=== PATIENT | male | born 1950 | race Caucasian/White ===

== ENCOUNTER → 2016-11-29 | Day surgery (SDC) | payer OTHER ==
[2016-11-24 13:22] VITALS: Ht 167.6 cm; Wt 81.8 kg
[~2016-11-29] VITALS: Ht 167.6 cm; Wt 81.8 kg
[~2016-11-29] MED LIST: LATA0.009 OPB; LIDOCAINE HCL 2% 2 ML VIAL (20MG/ML) ONE; MIDAZOLAM HCL 1 MG/ML 2ML VIAL ONE; ONDANSETRON INJ 2 MG/ML 2 ML VIAL ONE; PROPOFOL IV EMULSION 10 MG/ML 20 ML VIAL IV ONE; TMPOPS15 OPB
--- NOTE | 2016-11-29 12:58 | Endo History and Physical ---
History & Physical Date of Service: November 29, 2016. Chief Complaint: Screening Referring Physician: Roel Yip History of Present Illness 66 yo CM who presents for screening colonoscopy. Past Surgical History Hx Cardiac Surgery: No Hx Internal Defibrillator: No Hx Pacemaker: No Hx Abdominal Surgery: No Hx of Implantable Prosthesis: No Hx Cancer Surgery: No Hx Thoracic Surgery: No Hx Orthopedic: No Hx Urinary Tract Surgery: No Family History Colon CA, Esophogeal CA Social History Smoking Status: Never Smoker Hx Substance Use: No Hx Alcohol Use: No Allergies Coded Allergies: NO KNOWN DRUG ALLERGIES (Verified Allergy, Unknown, ., 11/24/16) Current Medications Reported Home Medications Medications Dose Route/Sig Max Daily Dose Days Date Category Timolol 0.5% Oph Soln 15 Ml (Timolol Maleate) 15 Ml Soln 1 Drop OPB QAM 11/24/16 Reported Xalatan 0.005% Oph Cyndee (Latanoprost) 0.005 % Cyndee 1 Drops OPB HS 90 11/24/16 Reported Vital Signs Weight (Kilograms): 81.82 Height (Feet): 5 Height (Inches): 6 Physical Exam General Appearance: WD/WN, no apparent distress Respiratory/Chest: Auscultation: breath sounds normal Cardiovascular: Heart Auscultation: RRR Abdomen: Bowel Sounds: normal Inspection & Palpation: soft, non-distended, no tenderness, guarding & rebound Assessment and Plan Assessment: 66 yo CM who presents for screening colonoscopy. Plan: Proceed with colonoscopy.
[2016-11-29 13:04] VITALS: TEMP 36.5
--- NOTE | 2016-11-29 14:07 | GI REPORT ---
Procedure Date: 11/29/2016 1:32 PM Procedure: Colonoscopy Indications: Screening for colorectal malignant neoplasm Medicines: Monitored Anesthesia Care Complications: No immediate complications. Estimated Blood Loss: Estimated blood loss: none. Procedure: Pre-Anesthesia Assessment: - Prior to the procedure, a History and Physical was performed, and patient medications and allergies were reviewed. The patient's tolerance of previous anesthesia was also reviewed. The risks and benefits of the procedure and the sedation options and risks were discussed with the patient. All questions were answered, and informed consent was obtained. Prior Anticoagulants: The patient has taken no previous anticoagulant or antiplatelet agents. ASA Grade Assessment: I - A normal, healthy patient. After reviewing the risks and benefits, the patient was deemed in satisfactory condition to undergo the procedure. After I obtained informed consent, the scope was passed under direct vision. Throughout the procedure, the patient's blood pressure, pulse, and oxygen saturations were monitored continuously. The scope was introduced through the anus and advanced to the terminal ileum. The colonoscopy was performed without difficulty. The patient tolerated the procedure well. The quality of the bowel preparation was good. The terminal ileum, ileocecal valve, appendiceal orifice, and rectum were photographed. Findings: Multiple small-mouthed diverticula were found in the sigmoid colon. Non-bleeding internal hemorrhoids were found during retroflexion. The hemorrhoids were small. Impression: - Diverticulosis in the sigmoid colon. - Non-bleeding internal hemorrhoids. - No specimens collected. Recommendation: - Resume previous diet. - Continue present medications. - Repeat colonoscopy in 10 years for surveillance. - Return to primary care physician as previously scheduled. Naman Higgins, 11/29/2016 2:06:26 PM This report has been signed electronically. Note Initiated On: 11/29/2016 1:32 PM I attest to the content of the Intraoperative Record and orders documented therein, exceptions below
[2016-11-29 14:30] VITALS: BP 116/74; PULSE 72; O2SAT 96
--- NOTE | 2016-11-29 14:31 | Discharge Instructions ---
Endoscopy Patient Instructions Date / Procedure(s) Performed November 29, 2016. Colonoscopy Allergy Information Coded Allergies: NO KNOWN DRUG ALLERGIES (Verified Allergy, Unknown, ., 11/24/16) Discharge Date / Findings November 29, 2016. Diverticulosis Internal hemorrhoids Medication Instructions OK to resume all medications today as prescribed Reported Home Medications Medications Dose Route/Sig Max Daily Dose Days Date Category Timolol 0.5% Oph Soln 15 Ml (Timolol Maleate) 15 Ml Soln 1 Drop OPB QAM 11/24/16 Reported Xalatan 0.005% Oph Cyndee (Latanoprost) 0.005 % Cyndee 1 Drops OPB HS 90 11/24/16 Reported Provider Instructions Activity Restrictions - No exercising or heavy lifting for 24 hours. - Do not drink alcohol the day of the procedure. - Do not drive a car or operate machinery until the day after the procedure. - Do not make any important decisions or sign important papers in 24 hours after the procedure. Following Day: - Return to full activity which may include returning to work/school. Diet Start your diet with liquids and light foods (jello, soup, juice, toast). Then eat your usual diet if not nauseated. Treatment For Common After Affects For mild abdominal pain, bloating, or excessive gas: - Rest - Eat lightly - Lie on right side Follow-Up Information Follow-up with Dr. Roel Yip as scheduled Anesthesia Information What You Should Know You have had a procedure that required some medicine to reduce anxiety and discomfort. This treatment is called moderate sedation. After receiving the treatment, you may be sleepy, but you will be able to breathe on your own. The effects of the treatment may last for several hours. Follow these instructions along with Activity/Diet recommendations noted above: * Do NOT do anything where dizziness or clumsiness would be dangerous. * Rest quietly at home today, then you can be up and about tomorrow. * Have a responsible person stay with you the rest of today. * You may have had an I.V. today. If so, you may take the dressing off later today. Recommendations Call your doctor if: * Trouble breathing * Continuous vomiting for more than 24 hours * Temperature above 101 degrees * Severe abdominal pain or bloating * Pain not relieved by pain medicine ordered * There is increased drainage or redness from any incision * A large amount of rectal bleeding greater than 2-3 tablespoons. (If you had a polyp/s removed or have hemorrhoids, a small amount of blood - from the rectum is to be expected.) * You have any unanswered questions or concerns. IN THE EVENT OF A SERIOUS EMERGENCY, GO TO THE NEAREST EMERGENCY ROOM Your discharge instructions were prepared by provider Naman Higgins. Patient Instructions Signature Page Clarissa Paz Patient (or Guardian) Signature/Date: I have read and understand the instructions given to me by my caregivers. Caregiver/RN/Doctor Signature/Date: The above-named patient and/or guardian has received patient instructions on this date. + Original Patient Signature Page (only) stays with chart. Please make copy for patient.
--- NOTE | 2016-11-29 14:35 | Anesthesiology Progress Note ---
Anesthesia Post Op Note Date & Time November 29, 2016 at 14:35 Vital Signs Pain Intensity: 0 Vital Signs Past 12 Hours Date Time Temp Pulse Resp B/P Pulse Ox O2 Delivery O2 Flow Rate FiO2 11/29/16 14:30 72 18 116/74 96 Room Air 11/29/16 14:15 79 18 111/84 94 Room Air 11/29/16 14:00 77 16 104/66 94 Room Air 11/29/16 13:04 36.5 79 20 140/85 97 Room Air Notes Mental Status: alert / awake / arousable, participated in evaluation Pt Amnestic to Procedure: Yes Nausea / Vomiting: adequately controlled Pain: adequately controlled Airway Patency, RR, SpO2: stable & adequate BP & HR: stable & adequate Hydration State: stable & adequate Anesthetic Complications: no major complications apparent
== END | disposition home or self-care (01) ==
LOC: C.GI 12:24
PROVIDERS: ATTEND Internal Medicine
DX: Z12.11 Encounter for screening for malignant neoplasm of colon (principal); K64.8 Other hemorrhoids; K57.30 Diverticulosis of large intestine without perforation or abscess without bleeding; Z80.0 Family history of malignant neoplasm of digestive organs

== ENCOUNTER 2023-08-27 18:19 | Observation (INO) ==
--- NOTE | 2023-08-27 18:25 | ED Triage Note ---
Date of Service August 27, 2023 Provider in Triage Author: Ayala Jameson History of Present Illness This patient was briefly evaluated while in triage. An abbreviated physical exam was performed. This patient is a 73-year-old Male who presents to the ED for evaluation of chest pain, left side, acute onset one hour ago with some initial radiation into left arm. Pt reports sitting matthews event occurred. NORIEGA, attempted to walk and couldn't bc of shob. Pain on left side with inspiration. Physical Exam Initial orders for labs and / or imaging were placed and patient was placed in the waiting area until a bed is available. Please see further documentation for the full ED course.
--- NOTE | 2023-08-27 19:02 | XRay Report ---
XR chest 1V portable CLINICAL HISTORY: Chest pain, nonspecific COMPARISON STUDY: Chest radiograph December 28, 2014. FINDINGS: Lung volumes are normal. Minimal left basilar opacity favors atelectasis. There is no pneum othorax or pleural effusion. Cardiac size is normal. Mediastinal contours are normal. There is no sarah dence for pulmonary edema. IMPRESSION: No acute cardiopulmonary findings. ACT 112: Negative or not required by law. Electronically signed by: Hay Rae M.D. 08/27/2023 7:00 PM
[2023-08-27 19:10] LABS: Basophils # (auto) 0.02 K/uL (0.00-0.20); Basophils % (auto) 0.2 %; Eosinophils # (auto) 0.11 K/uL (0.00-0.50); Eosinophils % (auto) 1.3 %; Hematocrit (blood only) 42.4 % (42.0-52.0); Immature Granulocytes # (auto) 0.04 K/uL (0.01-0.20); Immature Granulocytes % (auto) 0.5 %; Lymphocytes # (auto) 1.82 K/uL (1.20-3.40); Lymphocytes % (auto) 21.5 %; Mean Corpuscular Hgb Conc 35.4 g/dL (32.0-36.0); Mean Corpuscular Volume 87.6 fL (80.0-100.0); Mean Platelet Volume 8.8 fL (9.4-12.4); Monocytes # (auto) 0.69 K/uL (0.11-0.59); Monocytes % (auto) 8.1 %; Neutrophils % (auto) 68.4 %; Platelet Count 246 K/uL (130-400); RDW Coefficient of Variation 13.1 % (11.5-14.5); RDW Standard Deviation 41.7 fL (36.4-46.3); Red Blood Count 4.84 M/uL (4.70-6.10); White Blood Count 8.48 K/ul (4.8-10.8)
[2023-08-27 19:19] LABS: D Dimer 4150 ug/L FEU (0-500)
[2023-08-27 19:23] LABS: Alanine Aminotransferase 16 U/L (7-52); Albumin Globulin Ratio 1.4 (0.9-2); Albumin Level 3.9 gm/dl (3.4-5.0); Alkaline Phosphatase 89 U/L (34-104); Anion Gap 6 (3-11); Aspartate Aminotransferase 15 U/L (13-39); BUN Creatinine Ratio 17.9 (10-20); Bilirubin,Total 0.4 mg/dl (0.2-1.0); Blood Urea Nitrogen 19 mg/dl (6-23); Calcium 8.9 mg/dl (8.6-10.3); Carbon Dioxide 27 mmol/L (21-32); Chloride 107 mmol/L (98-107); Creatinine Clr Calc Pharmacy 66.4 ml/min; Est GFR (African American) 81.4 ml/min; Est GFR (Non-African American) 70.3 ml/min; Globulin 2.8 gm/dl (2.5-4.0); Glucose 141 mg/dl (70-99(Fasting)); Lipase 27 U/L (11-82); Potassium 3.9 mmol/L (3.5-5.1); Sodium 140 mmol/L (136-145); Total Protein 6.7 gm/dl (6.0-8.3)
[2023-08-27 19:27] LABS: Troponin I High Sensitivity < 2.3 pg/ml (0-20)
[2023-08-27] MEDS: OPTIRAY 320 125ml IV ONE (20:21)
--- NOTE | 2023-08-27 20:52 | CT Scan Report ---
Exam(s): CTA CHEST IV Amt: 115 ml optiray 320 EXAM: CT Angiography Chest With Intravenous Contrast CLINICAL HISTORY: Reason for exam: PE. TECHNIQUE: Axial computed tomographic angiography images of the chest with intravenous contrast. CTDI is 24.92 mGy and DLP is 798.59 mGy-cm. Automated exposure control was utilized for the study. A dose lowering technique was utilized adhering to the principles of ALARA. MIP reconstructed images were created and reviewed. COMPARISON: Chest radiograph 08/27/2023. FINDINGS: Pulmonary arteries: Bilateral lower lobe subsegmental pulmonary emboli. Aorta: No acute findings. No thoracic aortic aneurysm. Lungs: Left lower lobe atelectasis. No mass. Pleural space: Unremarkable. No significant effusion. No pneumothorax. Heart: Atherosclerotic calcifications of the coronary arteries. No cardiomegaly. No significant pericardial effusion. No evidence of RV dysfunction. Mediastinum: Mild hiatal hernia. Bones/joints: Degenerative change in the spine. No acute fracture. No dislocation. Soft tissues: Unremarkable. Lymph nodes: Unremarkable. No enlarged lymph nodes. Kidneys and ureters: Left renal lesion measuring up to 5.4 cm. IMPRESSION: 1. Bilateral lower lobe subsegmental pulmonary emboli. No evidence of right heart strain. 2. Atherosclerotic calcifications of the coronary arteries. 3. Left renal lesion measuring up to 5.4 cm. This is incompletely evaluated on this examination but could potentially represent a cyst. Consider evaluation with renal ultrasound as clinically warranted. Communications: Call Doctor Pulmonary Embolism Electronically signed by: Naman Mcmillan MD 08/27/23 20:51 PM
--- NOTE | 2023-08-27 22:09 | Emergency Department Note ---
Impression & Plan Pulmonary embolism, DVT (deep venous thrombosis) ED Provider Note NAME: RUSTAM MEJÍA AGE: 73 SEX: M : 1950 ARRIVES VIA: Walk-In INFORMANT: Patient, ED PROVIDER(S): Miki Bo MD CHIEF COMPLAINT: HPI: This is a 73-year-old male presenting for left-sided chest pain. Patient notes that this afternoon around 5 PM, he had a sudden onset of left-sided chest pain. Notes it is worse with inspiration specifically. He states it also hurts worse when laying down. Less pain with standing up he notes no nausea or vomiting. No history of cardiac disease or blood clots. No fever or chills recently. Did have a recent upper respiratory infection about 1 week ago which has resolved. Otherwise does note that he has had right lower extremity pain for about 6 weeks. ROS: See above HPI for pertinent positives & negatives. A total of 10 systems reviewed and were otherwise negative. PAST MEDICAL HISTORY: See Below PAST SURGICAL HISTORY: See Below FAMILY HISTORY: See Below SOCIAL HISTORY: See Below HOME MEDICATIONS: See Below ALLERGIES: See Below VITALS: See Below PHYSICAL EXAMINATION: General: resting comfortably in no acute distress Head: Normocephalic and atraumatic Eyes: Normal inspection, extraocular muscles intact Ear, nose, throat: Normal external exam Neck: Normal range of motion Respiratory: lungs clear to auscultation bilaterally Cardiovascular: Regular rate/rhythm, no murmur GI: soft, nontender, no guarding or rebound Extremities: nontender, moves all extremities Neuro: The patient awake and alert, appropriately conversive, no focal deficits, symmetric faces Skin: Warm, dry, and intact MEDICAL DECISION MAKING: This is a 73-year male presented for left-sided chest pain. Patient had a CTA done at triage due to elevated D-dimer, he does have bilateral subsegmental PEs. No right heart strain. Patient was clinically well without hypoxia, tachycardia or hypotension. Patient was walked around by nursing staff and again has no hypoxia or tachycardia. He does have persistent pain at this time. Otherwise with his right lower extremity pain, will do an ultrasound to rule out persistent DVT. At this time no clear cause for patient's PE as patient never had a blood clot before, he is on no blood thinners and has not had a history of cancer. No recent long flights. -Otherwise troponin was nonelevated on arrival -ECG independently interpreted by me with normal sinus rhythm, rate of 76, normal axis, normal MS, normal QRS, normal QTc, no ST segment elevations consistent with STEMI criteria, occasional PVC -Patient's ultrasound of the bilateral lower extremities actually does reveal an occlusive thrombus in the posterior tibial vein. With patient's now DVT as well as bilateral subsegmental PEs, will admit the patient for further workup. -Patient continues to remain stable without any vital sign abnormalities. His repeat troponin is still not elevated and his BNP is not significant elevated as well. Patient and comfortable with plan for admission Differential diagnosis: Embolism, dissection, pneumonia, ACS ER treatment provided: See below Diagnostics interpreted by me: ECG: As above Cardiac Monitoring: An order was placed for continuous cardiac monitoring. The monitor shows a rate of 80 with sinus rhythm. Laboratory studies: As stated above and show below. Imaging studies: See below. Past Med/Surg History Medical History (Updated 08/28/23 @ 14:23 by Miki Bo MD) Renal lesion DVT (deep venous thrombosis) Pulmonary embolism Diverticulosis of colon Glaucoma Surgical History History of wisdom tooth extraction Colon cancer screening 2017 repeat 10 yrs Family History Father Cancer Colorectal cancer Denies family history of Ovarian cancer Prostate cancer Diabetes Myocardial infarction Breast cancer Lung cancer Hypertension Stroke Social History Smoking Status: Never smoker Second Hand Exposure: No; Do You Dip or Chew Tobacco: No; Hx Alcohol Use: No Hx Substance Use: No Preferred Language: Trinidadian Communication Ability: Effective Visual Impairment: Diminished Hearing Ability: Normal Proposal Review Analyst Required: No Beliefs That Will Affect Care: None marital status: Current Living Situation: Spouse current occupational status: retired How many Children do You have: 3 Feels Safe at Home: Yes Childhood Exposure to Second-Hand Smoke: Yes Diet: low salt and regular Diet Comment: healthy caffeine: Yes Dental Care, Regularly: Yes Physical Activity Frequency: Daily Seatbelt Use: always Sunscreen Use: No Do you think of yourself as: straight/heterosexual Assistive Devices: Glasses Allergies Allergies Allergy/AdvReac Type Severity Reaction Status Date / Time No Known Drug Allergies Allergy Unknown . Verified 08/27/23 22:24 Home Meds Home Medications Medication Instructions Recorded Confirmed acetaminophen 500 mg tablet 500 mg PO Q6H PRN Pain 08/27/23 08/27/23 (Tylenol Extra Strength) netarsudil 0.02 % eye drops 1 drp OPB DAILY 08/27/23 08/27/23 (Rhopressa) travoprost 0.004 % eye drops 1 drp OPB HS 08/27/23 08/27/23 Previous Rx's Medication Instructions Recorded rivaroxaban 15 mg (42)-20 mg (9) See Rx Instructions PO .COMPLEX 08/28/23 tablets in a starter pack (Xarelto #51 ea DVT-PE Treatment 30-Day Starter) Results & Data (ED) Vital Signs Vital Signs - 24 hr 08/27/23 18:24 08/27/23 21:17 08/27/23 21:17 Temperature 36.9 C Temperature Source Skin Pulse Rate 84 Pulse Rate [Exercises] Pulse Rate [Left Apical] 87 Pulse Rate [Recovery] Pulse Rate [Resting] Pulse Rate from SpO2 Sensor Respiratory Rate 18 17 Respiratory Rate [Exercises] Respiratory Rate [Recovery] Respiratory Rate [Resting] Respiratory Effort / Characteristics Non-Labored Spontaneous Non-Labored Respiratory Depth Normal Normal Respiratory Pattern Regular Blood Pressure 142/80 H Blood Pressure [Left Arm] 129/76 Blood Pressure Mean 100 Blood Pressure Mean [Left Arm] 93 Blood Pressure Position Sitting Pulse Oximetry 95 99 Pulse Oximetry [Exercises] Pulse Oximetry [Recovery] Pulse Oximetry [Resting] Oxygen Delivery Method Room Air Room Air Room Air Sepsis Recent Fever Within 48 Hours No Sepsis New/Unexplained Change in Mental Status N/A Sepsis Action Taken by Nursing No Action Required 08/27/23 21:22 08/27/23 21:30 08/27/23 22:00 Temperature Temperature Source Pulse Rate 85 73 Pulse Rate [Exercises] 85 Pulse Rate [Left Apical] Pulse Rate [Recovery] 77 Pulse Rate [Resting] 86 Pulse Rate from SpO2 Sensor Respiratory Rate 21 23 Respiratory Rate [Exercises] 19 Respiratory Rate [Recovery] 17 Respiratory Rate [Resting] 18 Respiratory Effort / Characteristics Respiratory Depth Respiratory Pattern Blood Pressure Blood Pressure [Left Arm] Blood Pressure Mean Blood Pressure Mean [Left Arm] Blood Pressure Position Pulse Oximetry 98 95 Pulse Oximetry [Exercises] 95 Pulse Oximetry [Recovery] 95 Pulse Oximetry [Resting] 98 Oxygen Delivery Method Room Air Room Air Room Air Sepsis Recent Fever Within 48 Hours Sepsis New/Unexplained Change in Mental Status Sepsis Action Taken by Nursing 08/27/23 22:14 08/27/23 23:00 08/28/23 00:02 Temperature Temperature Source Pulse Rate 77 75 78 Pulse Rate [Exercises] Pulse Rate [Left Apical] Pulse Rate [Recovery] Pulse Rate [Resting] Pulse Rate from SpO2 Sensor 80 Respiratory Rate 18 19 Respiratory Rate [Exercises] Respiratory Rate [Recovery] Respiratory Rate [Resting] Respiratory Effort / Characteristics Respiratory Depth Respiratory Pattern Blood Pressure 126/76 Blood Pressure [Left Arm] Blood Pressure Mean 92 Blood Pressure Mean [Left Arm] Blood Pressure Position Pulse Oximetry 98 95 Pulse Oximetry [Exercises] Pulse Oximetry [Recovery] Pulse Oximetry [Resting] Oxygen Delivery Method Room Air Room Air Sepsis Recent Fever Within 48 Hours Sepsis New/Unexplained Change in Mental Status Sepsis Action Taken by Nursing 08/28/23 00:30 08/28/23 01:00 Temperature Temperature Source Pulse Rate 74 88 Pulse Rate [Exercises] Pulse Rate [Left Apical] Pulse Rate [Recovery] Pulse Rate [Resting] Pulse Rate from SpO2 Sensor 75 86 Respiratory Rate 18 21 Respiratory Rate [Exercises] Respiratory Rate [Recovery] Respiratory Rate [Resting] Respiratory Effort / Characteristics Respiratory Depth Respiratory Pattern Blood Pressure 116/67 151/95 H Blood Pressure [Left Arm] Blood Pressure Mean 83 113 Blood Pressure Mean [Left Arm] Blood Pressure Position Pulse Oximetry 94 96 Pulse Oximetry [Exercises] Pulse Oximetry [Recovery] Pulse Oximetry [Resting] Oxygen Delivery Method Room Air Room Air Sepsis Recent Fever Within 48 Hours Sepsis New/Unexplained Change in Mental Status Sepsis Action Taken by Nursing Laboratory Data 08/28/23 07:52 08/28/23 07:52 Lab Results 08/27/23 08/27/23 Range/Units 18:46 22:55 WBC 8.48 (4.8-10.8) K/ul RBC 4.84 (4.70-6.10) M/uL Hgb 15.0 (14.0-18.0) g/dl Hct 42.4 (42.0-52.0) % MCV 87.6 (80.0-100.0) fL MCH 31.0 (25.0-34.0) pg MCHC 35.4 (32.0-36.0) g/dL RDW Std Deviation 41.7 (36.4-46.3) fL RDW Coeff of Shemar 13.1 (11.5-14.5) % Plt Count 246 (130-400) K/uL MPV 8.8 L (9.4-12.4) fL Immature Gran % (Auto) 0.5 % Neut % (Auto) 68.4 % Lymph % (Auto) 21.5 % [place] % (Auto) 8.1 % Eos % (Auto) 1.3 % Baso % (Auto) 0.2 % Neut # (Auto) 5.80 (1.40-6.50) K/uL Lymph # (Auto) 1.82 (1.20-3.40) K/uL [place] # (Auto) 0.69 H (0.11-0.59) K/uL Eos # (Auto) 0.11 (0.00-0.50) K/uL Baso # (Auto) 0.02 (0.00-0.20) K/uL Immature Gran # (Auto) 0.04 (0.01-0.20) K/uL APTT 32 H (21-31) Seconds PTT Ratio 1.1 D-Dimer 4150 H* (0-500) ug/L FEU Sodium 140 (136-145) mmol/L Potassium 3.9 (3.5-5.1) mmol/L Chloride 107 (98-107) mmol/L Carbon Dioxide 27 (21-32) mmol/L Anion Gap 6 (3-11) BUN 19 (6-23) mg/dl Creatinine 1.06 (0.6-1.4) mg/dl Est Cr Clr Drug Dosing 66.4 ml/min Est GFR ( Amer) 81.4 ml/min Est GFR (Non-Af Amer) 70.3 ml/min BUN/Creatinine Ratio 17.9 (10-20) Glucose 141 H (70-99(Fasting)) mg/dl Calcium 8.9 (8.6-10.3) mg/dl Total Bilirubin 0.4 (0.2-1.0) mg/dl AST 15 (13-39) U/L ALT 16 (7-52) U/L Alkaline Phosphatase 89 (34-104) U/L Troponin I High Sens < 2.3 3.2 (0-20) pg/ml B-Natriuretic Peptide 38 (0-100) pg/ml Total Protein 6.7 (6.0-8.3) gm/dl Albumin 3.9 (3.4-5.0) gm/dl Globulin 2.8 (2.5-4.0) gm/dl Albumin/Globulin Ratio 1.4 (0.9-2) Lipase 27 (11-82) U/L Administered Medications Discontinued Medications Acetaminophen (Acetaminophen 500 Mg Tab) 500 mg PO Q6H PRN PRN Reason: Pain Stop: 09/27/23 02:48 Last Admin: 08/28/23 03:40 Dose: 500 mg Documented By: KARISHMA Apixaban (Apixaban 5 Mg Tablet) 10 mg PO BID [facility] Stop: 09/03/23 09:01 Last Admin: 08/28/23 01:41 Dose: Not Given Documented By: KARISHMA Heparin Sodium (Porcine) (Heparin Sod (Porcine) 1000 Unit/Ml) 6,000 units IV NOW ONE Stop: 08/28/23 00:31 Last Admin: 08/28/23 01:00 Dose: 6,000 units Documented By: KARISHMA Co-signed By: BON Heparin Sodium/Dextrose (Heparin Iv Adult Wt-Based Standard W/ Initial Bolus Protocol) 1 each IV NOW [facility]; Protocol Stop: 08/27/23 23:26 Last Admin: 08/28/23 01:05 Dose: Not Given Documented By: KARISHMA Heparin Sodium/Dextrose (Heparin Sodium/Dextrose) 25,000 units in 500 mls @ 26 mls/hr IV .[id number] [facility]; Protocol Stop: 09/26/23 23:44 Last Titration: 08/28/23 12:30 Dose: 0 units/hr, 0 mls/hr Documented By: CICI Co-signed By: SYBIL Admin: 08/28/23 11:32 Dose: 1,000 units/hr, 20 mls/hr Documented By: CICI Co-signed By: SYBIL Titration: 08/28/23 11:32 Dose: Infused Documented By: CICI Co-signed By: SYBIL Titration: 08/28/23 09:30 Dose: 0 units/hr, 0 mls/hr Documented By: SARAN Co-signed By: FINA Admin: 08/28/23 01:03 Dose: 1,300 units/hr, 26 mls/hr Documented By: KARISHMA Co-signed By: BON Ioversol (Optiray 320 125ml) 115 ml IV ONCE ONE Stop: 08/27/23 20:22 Last Admin: 08/27/23 20:21 Dose: 115 ml Documented By: HALLE Ketorolac Tromethamine (Ketorolac Tromethamine 15 Mg/Ml Vial) 15 mg IV NOW ONE Stop: 08/27/23 22:13 Last Admin: 08/27/23 22:21 Dose: 15 mg Documented By: JOSSELIN Miscellaneous (Netarsudil [Rhopressa] 0.02 % - Order Awaiting Action) 1 each N/A QS LAURA Stop: 09/27/23 07:59 Last Admin: 08/28/23 09:05 Dose: Not Given Documented By: MONTY Rivaroxaban (Rivaroxaban 15 Mg Tab) 15 mg PO BID LAURA Stop: 09/27/23 12:59 Last Admin: 08/28/23 12:49 Dose: 15 mg Documented By: CICI Imaging Data Radiologist's Impression: Chest X-Ray 08/27/23 00:00 XR chest 1V portable CLINICAL HISTORY: Chest pain, nonspecific COMPARISON STUDY: Chest radiograph December 28, 2014. FINDINGS: Lung volumes are normal. Minimal left basilar opacity favors atelectasis. There is no pneumothorax or pleural effusion. Cardiac size is normal. Mediastinal contours are normal. There is no evidence for pulmonary edema. IMPRESSION: No acute cardiopulmonary findings. ACT 112: Negative or not required by law. Electronically signed by: Hay Rae M.D. 08/27/2023 7:00 PM Chest CTA 08/27/23 19:20 CR Exam(s): CTA CHEST IV Amt: 115 ml optiray 320 EXAM: CT Angiography Chest With Intravenous Contrast CLINICAL HISTORY: Reason for exam: PE. TECHNIQUE: Axial computed tomographic angiography images of the chest with intravenous contrast. CTDI is 24.92 mGy and DLP is 798.59 mGy-cm. Automated exposure control was utilized for the study. A dose lowering technique was utilized adhering to the principles of ALARA. MIP reconstructed images were created and reviewed. COMPARISON: Chest radiograph 08/27/2023. FINDINGS: Pulmonary arteries: Bilateral lower lobe subsegmental pulmonary emboli. Aorta: No acute findings. No thoracic aortic aneurysm. Lungs: Left lower lobe atelectasis. No mass. Pleural space: Unremarkable. No significant effusion. No pneumothorax. Heart: Atherosclerotic calcifications of the coronary arteries. No cardiomegaly. No significant pericardial effusion. No evidence of RV dysfunction. Mediastinum: Mild hiatal hernia. Bones/joints: Degenerative change in the spine. No acute fracture. No dislocation. Soft tissues: Unremarkable. Lymph nodes: Unremarkable. No enlarged lymph nodes. Kidneys and ureters: Left renal lesion measuring up to 5.4 cm. IMPRESSION: 1. Bilateral lower lobe subsegmental pulmonary emboli. No evidence of right heart strain. 2. Atherosclerotic calcifications of the coronary arteries. 3. Left renal lesion measuring up to 5.4 cm. This is incompletely evaluated on this examination but could potentially represent a cyst. Consider evaluation with renal ultrasound as clinically warranted. Communications: Call Doctor Pulmonary Embolism Electronically signed by: Naman Mcmillan MD 08/27/23 20:51 PM Discharge Plan Visit Data Chief Complaint: Cardiac Assessment Stated Complaint: CHEST PAIN ED Provider: Miki Bo Discharge Problem: Pulmonary embolism, DVT (deep venous thrombosis) Patient Disposition: Admitted As Inpatient Condition: Good Discharge Instructions Interventions: ED Discharge Assessment Last Done: 08/28/23 02:49
[2023-08-27] MEDS: KETOROLAC TROMETHAMINE 15 MG/ML VIAL IV ONE (22:21)
[2023-08-27] MEDS ORDERED: HEPARIN SOD (PORCINE) 1000 UNIT/ML IV ONE (23:40)
--- NOTE | 2023-08-27 23:50 | Ultrasound Report ---
Exam(s): US VENOUS BILATERAL LOWER EXTREMITIES EXAM: US Duplex Bilateral Lower Extremities Veins CLINICAL HISTORY: Reason for exam: PE, leg pain (R). TECHNIQUE: Real-time duplex ultrasound scan of the bilateral lower extremity veins integrating B-mode two-dimensional vascular structure, Doppler spectral analysis, color flow Doppler imaging and compression. COMPARISON: None. FINDINGS: Right deep veins: Occlusive thrombus in the right posterior tibial vein. Right superficial veins: Unremarkable. No thrombus in the visualized right great saphenous vein. Left deep veins: Unremarkable. No DVT in the left common femoral, femoral, proximal deep femoral or popliteal veins. The veins demonstrate normal color flow, are normally compressible, with normal phasic flow and/or augmentation response. Left superficial veins: Unremarkable. No thrombus in the visualized left great saphenous vein. Soft tissues: No acute findings. No popliteal cyst. IMPRESSION: 1. Occlusive thrombus in the right posterior tibial vein. 2. No evidence of deep vein thrombosis in the left lower extremity. Communications: Call Doctor DVT acute, progressing Electronically signed by: Naman Mcmillan MD 08/27/23 23:50 PM
[2023-08-28] MEDS ORDERED: RIVAROXABAN 15 MG TAB PO SCH
--- NOTE | 2023-08-28 00:38 | History & Physical Report ---
Date of Service August 28, 2023 Assessment & Plan (1) Prediabetes: (2) Glaucoma: (3) Pulmonary embolism: (4) DVT (deep venous thrombosis): (5) Renal lesion: Plan Right Posterior Tibial Vein DVT and Bilateral lower lobe subsegmental pulmonary Emboli -Patient presented due to chest pain, has had ongoing right leg pain for ~6 weeks -CTA chest and LE venous duplex completed, identified clots as above. D-dimer elevated at 4150 -No prior history of clots, DVT and PE appear to be unprovoked at this time -Concern of possibility for underlying malignancy as provoking factor. -New renal lesion noted on CT, will follow up with ultrasound. Patient is current with colon cancer screenings, unsure of PSA so will check as well -Started on heparin gtt in ED New Renal Lesion -Left renal lesion measuring up to 5.4 cm identified on CTA chest -New finding, per patient this has never been seen in the past -Ordered renal ultrasound to investigate further -Some concern of correlation with underlying malignancy considering patient's presentation with DVT and PE -Patient has known (indirect) exposure to asbestos in childhood, asbestos is linked to renal cell carcinoma Admit to [facility] VTE Prophylaxis: on heparin drip Diet: Regular Code Status: Full Code History of Present Illness Primary Care Provider: Shaw Lozano DO Clarissa Paz is a 73 year-old male with a past medical history of pre-diabetes and glaucoma, who presented to the ED for left sided chest pain and shortness of breath. He notes that for the past 6 weeks he has had some on and off pain in the back of his right leg- notes he went to his PCP and was diagnosed with sciatica. However this pain did worsen in the past few weeks, also worsened after he had to drive back and forth to [place] on several occasions. Notes that the pain made it more difficult to ambulate, which is unusual for him as he is typically very active. He notes that he has been a bit short of breath today secondary to the chest pain, but other bridges has not had noticeable dyspnea on exertion. Denies any changes in bowel or bladder habits. 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 ED Course: -CTA chest, LE venous duplex -D-dimer- 4150 Allergies Allergy/AdvReac Type Severity Reaction Status Date / Time No Known Drug Allergies Allergy Unknown . Verified 08/27/23 22:24 Home Medications Medication Instructions Recorded Confirmed Type acetaminophen 500 mg tablet 500 mg PO Q6H PRN Pain 08/27/23 08/27/23 History (Tylenol Extra Strength) netarsudil 0.02 % eye drops 1 drp OPB DAILY 08/27/23 08/27/23 History (Rhopressa) travoprost 0.004 % eye drops 1 drp OPB HS 08/27/23 08/27/23 History rivaroxaban 15 mg (42)-20 mg (9) See Rx Instructions PO .COMPLEX 08/28/23 Rx tablets in a starter pack (Xarelto #51 ea DVT-PE Treatment 30-Day Starter) Past Med/Surg History Medical History (Updated 08/28/23 @ 14:23 by Miki Bo MD) Renal lesion DVT (deep venous thrombosis) Pulmonary embolism Diverticulosis of colon Glaucoma Surgical History History of wisdom tooth extraction Colon cancer screening 2017 repeat 10 yrs Family History Father Cancer Colorectal cancer Denies family history of Ovarian cancer Prostate cancer Diabetes Myocardial infarction Breast cancer Lung cancer Hypertension Stroke Social History Smoking Status: Never smoker Second Hand Exposure: No; Do You Dip or Chew Tobacco: No; Hx Alcohol Use: No Hx Substance Use: No Preferred Language: Nepali Communication Ability: Effective Visual Impairment: Diminished Hearing Ability: Normal Back Shoe Worker Required: No Beliefs That Will Affect Care: None marital status: Current Living Situation: Spouse current occupational status: retired How many Children do You have: 3 Feels Safe at Home: Yes Childhood Exposure to Second-Hand Smoke: Yes Diet: low salt and regular Diet Comment: healthy caffeine: Yes Dental Care, Regularly: Yes Physical Activity Frequency: Daily Seatbelt Use: always Sunscreen Use: No Do you think of yourself as: straight/heterosexual Assistive Devices: Glasses Review of Systems Review of Systems: As per above Physical Exam 2 Constitutional: WD/WN, vitals as above Eyes: + anicteric sclerae; no conjunctival abn ormality ENMT: Ears: no external ear abnormality Nose: no external nose abnormality moist mucous membranes Respiratory: normal respiratory effort, lungs clear to auscultation Cardiovascular: Rate/Rhythm: regular rate and regular rhythm Extremities: no edema No lower extremity edema, good peripheral pulses. Does have pain with palpation of right calf. Gastrointestinal (Abdomen): normal bowel sounds, soft, nontender, no hepatosplenomegaly Skin: no rashes, warm and dry Psychiatric: A+Ox3, euthymic affect Results & Data Results & Data Vital Signs (Past 12 Hours) Vital Signs Temp Pulse Pulse Pulse Pulse Pulse Resp 08/28/23 00:02 78 19 08/27/23 23:00 75 18 08/27/23 22:14 77 08/27/23 22:00 73 23 08/27/23 21:30 85 21 08/27/23 21:22 85 77 86 08/27/23 21:17 87 17 08/27/23 21:17 08/27/23 18:24 36.9 C 84 18 Resp Resp Resp BP BP Pulse Ox Pulse Ox 08/28/23 00:02 126/76 95 08/27/23 23:00 98 08/27/23 22:14 08/27/23 22:00 95 08/27/23 21:30 98 08/27/23 21:22 19 17 18 95 08/27/23 21:17 129/76 99 08/27/23 21:17 08/27/23 18:24 142/80 H 95 Pulse Ox Pulse Ox O2 Del Method 08/28/23 00:02 Room Air 08/27/23 23:00 Room Air 08/27/23 22:14 08/27/23 22:00 Room Air 08/27/23 21:30 Room Air 08/27/23 21:22 95 98 Room Air 08/27/23 21:17 Room Air 08/27/23 21:17 Room Air 08/27/23 18:24 Room Air Diagnostic Findings Chest X-Ray 08/27/23 00:00 XR chest 1V portable CLINICAL HISTORY: Chest pain, nonspecific COMPARISON STUDY: Chest radiograph December 28, 2014. FINDINGS: Lung volumes are normal. Minimal left basilar opacity favors atelectasis. There is no pneumothorax or pleural effusion. Cardiac size is normal. Mediastinal contours are normal. There is no evidence for pulmonary edema. IMPRESSION: No acute cardiopulmonary findings. ACT 112: Negative or not required by law. Electronically signed by: Hay Rae M.D. 08/27/2023 7:00 PM Chest CTA 08/27/23 19:20 CR Exam(s): CTA CHEST IV Amt: 115 ml optiray 320 EXAM: CT Angiography Chest With Intravenous Contrast CLINICAL HISTORY: Reason for exam: PE. TECHNIQUE: Axial computed tomographic angiography images of the chest with intravenous contrast. CTDI is 24.92 mGy and DLP is 798.59 mGy-cm. Automated exposure control was utilized for the study. A dose lowering technique was utilized adhering to the principles of ALARA. MIP reconstructed images were created and reviewed. COMPARISON: Chest radiograph 08/27/2023. FINDINGS: Pulmonary arteries: Bilateral lower lobe subsegmental pulmonary emboli. Aorta: No acute findings. No thoracic aortic aneurysm. Lungs: Left lower lobe atelectasis. No mass. Pleural space: Unremarkable. No significant effusion. No pneumothorax. Heart: Atherosclerotic calcifications of the coronary arteries. No cardiomegaly. No significant pericardial effusion. No evidence of RV dysfunction. Mediastinum: Mild hiatal hernia. Bones/joints: Degenerative change in the spine. No acute fracture. No dislocation. Soft tissues: Unremarkable. Lymph nodes: Unremarkable. No enlarged lymph nodes. Kidneys and ureters: Left renal lesion measuring up to 5.4 cm. IMPRESSION: 1. Bilateral lower lobe subsegmental pulmonary emboli. No evidence of right heart strain. 2. Atherosclerotic calcifications of the coronary arteries. 3. Left renal lesion measuring up to 5.4 cm. This is incompletely evaluated on this examination but could potentially represent a cyst. Consider evaluation with renal ultrasound as clinically warranted. Communications: Call Doctor Pulmonary Embolism Electronically signed by: Naman Mcmillan MD 08/27/23 20:51 PM Venous Doppler Study 08/27/23 21:31 CR Exam(s): US VENOUS BILATERAL LOWER EXTREMITIES EXAM: US Duplex Bilateral Lower Extremities Veins CLINICAL HISTORY: Reason for exam: PE, leg pain (R). TECHNIQUE: Real-time duplex ultrasound scan of the bilateral lower extremity veins integrating B-mode two-dimensional vascular structure, Doppler spectral analysis, color flow Doppler imaging and compression. COMPARISON: None. FINDINGS: Right deep veins: Occlusive thrombus in the right posterior tibial vein. Right superficial veins: Unremarkable. No thrombus in the visualized right great saphenous vein. Left deep veins: Unremarkable. No DVT in the left common femoral, femoral, proximal deep femoral or popliteal veins. The veins demonstrate normal color flow, are normally compressible, with normal phasic flow and/or augmentation response. Left superficial veins: Unremarkable. No thrombus in the visualized left great saphenous vein. Soft tissues: No acute findings. No popliteal cyst. IMPRESSION: 1. Occlusive thrombus in the right posterior tibial vein. 2. No evidence of deep vein thrombosis in the left lower extremity. Communications: Call Doctor DVT acute, progressing Electronically signed by: Naman Mcmillan MD 08/27/23 23:50 PM Supervising Physician Co-Signing Physician Notes Attending addendum: I have physically seen this patient, have supervised the medical residents activities, and agree with the H&P unless as otherwise noted. Assessment and Plan: Bilateral lower lobe subsegmental pulmonary emboli/right posterior tibial vein DVT- Admit to monitored bed Start heparin drip per protocol Concern regarding new renal lesion on CT for possible renal CA is underlying stimulus Order PSA Colon cancer screening is up-to-date New renal lesion- Left renal lesion 5.[address] chest noted Order renal ultrasound Further workup as needed Resident Activity Tracking Resident Involvement: Resident Care Provided Care Provided: Adult Hospital Medicine
[2023-08-28 00:39] LABS: Partial Thromboplastin Ratio 1.1; Partial Thromboplastin Time 32 Seconds (21-31)
[2023-08-28] MEDS: HEPARIN SOD (PORCINE) 1000 UNIT/ML IV ONE (01:00)
[2023-08-28] MEDS: HEPARIN SODIUM/DEXTROSE 25,000 UNITS/500 ML BAG IV SCH (01:03)
[2023-08-28] MEDS: Heparin IV Adult Wt-Based Standard w/ INITIAL Bolus Protocol IV STA (01:05)
[2023-08-28] MEDS: APIXABAN 5 MG TABLET PO SCH (01:41)
[2023-08-28] MEDS ORDERED: ONDANSETRON INJ 2 MG/ML 2 ML VIAL IV PRN (02:49)
[2023-08-28] MEDS ORDERED: POLYETHYLENE (MIRALAX) 17 GM PACK PO PRN (02:49)
[2023-08-28] MEDS: ACETAMINOPHEN 500 MG TAB PO PRN (03:40)
--- NOTE | 2023-08-28 08:05 | Electrocardiogram Report ---
Test Reason : Blood Pressure : / mmHG Vent. Rate : 083 BPM Atrial Rate : 083 BPM P-R Int : 170 ms QRS Dur : 076 ms QT Int : 348 ms P-R-T Axes : 058 028 057 degrees QTc Int : 408 ms Sinus rhythm with occasional Premature ventricular complexes Otherwise normal ECG When compared with ECG of 18-FEB-2008 16:26, Premature ventricular complexes are now Present Confirmed by Osvaldo Pablo ([id number]) on 08/28/2023 8:05:33 AM Referred By: REFERRED SELF Confirmed By:Osvaldo Pablo
--- NOTE | 2023-08-28 08:10 | Electrocardiogram Report ---
Test Reason : Blood Pressure : / mmHG Vent. Rate : 076 BPM Atrial Rate : 076 BPM P-R Int : 170 ms QRS Dur : 086 ms QT Int : 374 ms P-R-T Axes : 052 042 041 degrees QTc Int : 420 ms Sinus rhythm with occasional Premature ventricular complexes Otherwise normal ECG When compared with ECG of 27-AUG-2023 18:45, No significant change was found Confirmed by Osvaldo Pablo ([id number]) on 08/28/2023 8:09:43 AM Referred By: REFERRED SELF Confirmed By:Osvaldo Pablo
[2023-08-28 08:11] LABS: Basophils # (auto) 0.02 K/uL (0.00-0.20); Basophils % (auto) 0.2 %; Eosinophils # (auto) 0.02 K/uL (0.00-0.50); Eosinophils % (auto) 0.2 %; Hematocrit (blood only) 42.7 % (42.0-52.0); Hemoglobin 14.5 g/dl (14.0-18.0); Immature Granulocytes # (auto) 0.05 K/uL (0.01-0.20); Immature Granulocytes % (auto) 0.5 %; Lymphocytes # (auto) 1.59 K/uL (1.20-3.40); Lymphocytes % (auto) 17.2 %; Mean Corpuscular Hemoglobin 30.3 pg (25.0-34.0); Mean Corpuscular Volume 89.1 fL (80.0-100.0); Mean Platelet Volume 8.5 fL (9.4-12.4); Monocytes # (auto) 0.91 K/uL (0.11-0.59); Monocytes % (auto) 9.9 %; Neutrophils # (auto) 6.63 K/uL (1.40-6.50); Platelet Count 205 K/uL (130-400); RDW Coefficient of Variation 13.1 % (11.5-14.5); Red Blood Count 4.79 M/uL (4.70-6.10); White Blood Count 9.22 K/ul (4.8-10.8)
[2023-08-28 08:28] LABS: BUN Creatinine Ratio 20.4 (10-20); Calcium 8.5 mg/dl (8.6-10.3); Creatinine Clr Calc Pharmacy 75.7 ml/min; Est GFR (African American) 95.4 ml/min; Est GFR (Non-African American) 82.3 ml/min; Potassium 3.9 mmol/L (3.5-5.1)
[2023-08-28 09:24] LABS: ANTI-Xa, UFH(UnfractionatedHep 1.09 IU/ml (0.3-0.7)
--- NOTE | 2023-08-28 10:09 | Ultrasound Report ---
RENAL ULTRASOUND CLINICAL HISTORY: new finding of left renal lesion COMPARISON STUDY: Chest CT August 27, 2023. TECHNIQUE: Sonography of the kidneys and the urinary bladder was performed. FINDINGS: Right kidney measures 10.3 cm in maximal dimension and the left measures 10.4 cm. Renal ech ogenicity, size and cortical thickness are normal. No renal calculi are identified. 5.3 cm left renal lesion corresponds to the lesion on chest CT of August 27, 2023. No solid component is present. The re is no color flow. Internal echoes within this lesion are artifactual. This represents a renal cyst . Bladder is collapsed. IMPRESSION: 1. 5.3 cm left renal lesion which corresponds to the lesion on CT of August 27, 2023. This is consis tent with a cyst. 2. No hydronephrosis. ACT 112: Negative or not required by law. Electronically signed by: Hay Rae M.D. 08/28/2023 10:08 AM
--- NOTE | 2023-08-28 12:36 | Discharge Summary ---
Discharge Summary Date of Service August 28, 2023 Notes For Next Care Provider Needs Urology follow up for elevated PSA, renal cyst Consider repeat colonoscopy Medication Changes From Visit Added Xarelto 15mg po bid x 3 weeks then 20mg po qPM Admission HPI Per Admitting Provider Clarissa Paz is a 73 year-old male with a past medical history of pre-diabetes and glaucoma, who presented to the ED for left sided chest pain and shortness of breath. He notes that for the past 6 weeks he has had some on and off pain in the back of his right leg- notes he went to his PCP and was diagnosed with sciatica. However this pain did worsen in the past few weeks, also worsened after he had to drive back and forth to [place] on several occasions. Notes that the pain made it more difficult to ambulate, which is unusual for him as he is typically very active. He notes that he has been a bit short of breath today secondary to the chest pain, but other bridges has not had noticeable dyspnea on exertion. Denies any changes in bowel or bladder habits. 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 ED Course: -CTA chest, LE venous duplex -D-dimer- 4150 Principal Dx & Hospital Course #1 = Principal Diagnosis (1) Pulmonary embolism: Right Posterior Tibial Vein DVT and Bilateral lower lobe subsegmental pulmonary Emboli -Patient presented due to chest pain, has had ongoing right leg pain for ~6 weeks thought to be sciatica but may have been from DVT -CTA chest and LE venous duplex completed, identified clots as above. D-dimer elevated at 4150 -not hypoxic or tachycardic. BNP normal, troponin negative x 2. No Right heart strain on CTA or based on normal BNP/trop -pain much improved after admission -No prior history of clots, no recent surgeries. Did have recent URI 2 weeks ago, perhaps COVID which can cause VTE. He has had recent multiple trips to [place] and back but pain in RLE started before that. Hard to say if sciatica came first and was more sedentary and then the VTE? -Renal lesion is a cyst which is not likely a malignancy. PSA elevated but can be falsely elevated after recent long car rides vs BPH vs prostate CA-recommend f/u with Urology -Has a +FH of colon CA in his father, last clonoscopy 2016--> recommend repeat colonoscopy once safe to hold anticoagulation-perhaps in 1-2 months. No anemia and LFTs normal so doubt any GI occult bleeding or CA or mets -Started on heparin gtt here and transitioned to Xarelto 15mg po bid x 21 days then 20mg daily x 3-6 months -f/u with PCP (2) DVT (deep venous thrombosis): as above (3) Prediabetes: no meds, diet controlled f/u PCP (4) Glaucoma: continue home eye gtts (5) Renal lesion: -Left renal lesion measuring up to 5.4 cm identified on CTA chest - renal ultrasound shows 5.3cm cyst, likely not malignancy f/u Urology outpt (6) Elevated PSA: PSA 9.778 as above-discussed with patient f/u Urolgy outpt Plan Dispo-stable for dc to home Discharge Exam Constitutional WD/WN, vitals as above Neck trachea midline, no thyromegaly Respiratory normal respiratory effort, lungs clear to auscultation Cardiovascular RRR, no murmur, no edema Chest (Breasts) Chest: normal inspection of chest Gastrointestinal (Abdomen) normal bowel sounds, soft, nontender, no hepatosplenomegaly Musculoskeletal Extremities: extremities normal to inspection; no cyanosis and no clubbing Skin no rashes, warm and dry Neurologic moves all extremities and awake; no focal motor deficits Psychiatric A+Ox3, euthymic affect Lymphatic no lymphedema Updated Medication List Medication Instructions Recorded Confirmed Type acetaminophen 500 mg tablet 500 mg PO Q6H PRN Pain 08/27/23 08/27/23 History (Tylenol Extra Strength) netarsudil 0.02 % eye drops 1 drp OPB DAILY 08/27/23 08/27/23 History (Rhopressa) travoprost 0.004 % eye drops 1 drp OPB HS 08/27/23 08/27/23 History rivaroxaban 15 mg (42)-20 mg (9) See Rx Instructions PO .COMPLEX 08/28/23 Rx tablets in a starter pack (Xarelto #51 ea DVT-PE Treatment 30-Day Starter) Hospital Stay Data Consultations 08/27/23 23:41 ED Decision to Admit Stat Diagnostic Imagining Performed 08/27/23 19:20 CT angio chest PE protocol Stat 08/27/23 21:31 US leg [US venous doppler LE BI] Stat 08/28/23 01:47 US Renal Bladder [US renal/blad retro comp] Routine Pending Results Patient Have Any Pending Studies at Discharge: No Discharge Instructions Given to Patient (Per Discharging Provider) You were admitted for blood clots in the smaller arteries in both lungs near the bottoms of the lungs. You were also found to have a blood clot in your right calf. While this could be from your recent long travel, there is a possibility it could be from an underlying cancer. Your kidney had a cyst on it and this is not likely to be a cancer. Your PSA was elevated and should be followed up by a Urologist to make sure you do not have a prostate cancer. Please also talk to your PCP about a repeat colonoscopy given your family history of colon cancer and it has been 7 years since your last colonoscopy. You will be started on Xarelto which is a blood thinner pill. You should remain on this for 3-6 months-your PCP can help determine when it is safe to stop taking the blood thinner in the future. If you have any issues with major bleeding as we discussed, please come to the hospital right away. If you fall and hit your head, please come to the hospital to get checked out. If you have minor bruises or cuts, you will need to hold pressure for longer to get the bleeding to stop. Total Time Total Time Spent Total Time Spent (In Minutes): 35 min Coding Level of Care Code 67891 INP/OBS DISCH >30 MIN Diagnoses Pulmonary embolism I26.99 DVT (deep venous thrombosis) I82.409 Prediabetes R73.03 Glaucoma H40.9 Renal lesion N28.9 Elevated PSA R97.20
[2023-08-28] MEDS: RIVAROXABAN 15 MG TAB PO SCH (12:49)
[2023-08-28] MEDS ORDERED: TRAVOPROST Z 0.004% OPH SOLN 2.5 ML BTL OPB SCH (21:00)
--- NOTE | 2023-08-28 21:45 | Billing Data ---
Date of Service August 28, 2023 Coding Level of Care Code 50658 INT INP/OBS CARE
== END 2023-08-28 13:00 | disposition home or self-care (01) ==
LOC: ED 18:19 → EDINP 18:19 → SUATTDRO 08-28 01:18 → EDINP 08-28 02:49